=== PATIENT | female | born 1985 | race Two or more races ===

== ENCOUNTER → 2022-04-03 | Outpatient (CLI) | payer OTHER ==
[~2022-04-03] MED LIST: ACET-66 PO; FLUT16H NASAL; LORA10TA7 PO
== END | disposition home or self-care (01) ==
LOC: RAH 09:03
PROVIDERS: ATTEND Internal Medicine Gastroenterology
DX: R94.5 Abnormal results of liver function studies (principal)
CPT/HCPCS: 76700

== ENCOUNTER 2022-04-17 14:54 | Emergency (ER) | payer OTHER ==
[~2022-04-17] VITALS: Ht 165.1 cm; Wt 105.2 kg
[2022-04-17 17:09] LABS: APPEARANCE,URINE Clear (CLEAR); BILIRUBIN,URINE Negative (NEGATIVE); COLOR,URINE Yellow (YELLOW); GLUCOSE, URINE (UA) Negative (NEGATIVE); KETONES,URINE Negative (NEGATIVE); LEUKOCYTE ESTERASE ,URINE Negative (NEGATIVE); NITRATE,URINE Negative (NEGATIVE); OCCULT BLOOD,URINE Negative (NEGATIVE); PROTEIN,URINE Negative (NEGATIVE); UROBILINOGEN,URINE 0.2 mg/dL (0.2-1.0)
[2022-04-17 17:11] LABS: HCG,QUAL RESULT NEGATIVE (NEGATIVE)
[2022-04-17] MEDS ORDERED: ONDANSETRON 4MG INJ IVP ONE (17:30)
[2022-04-17] MEDS ORDERED: 0.9%NACL 1000ML 1,000 ML IV ONE (17:30)
[2022-04-17] MEDS ORDERED: KETOROLAC 15MG/ML VIAL (15MG/ML) IV ONE (17:30)
[2022-04-17 17:41] LABS: BASOPHILS % (AUTO) 0.6 % (0.0-5.0); EOSINOPHILS % (AUTO) 2.2 % (0.0-8.0); HEMATOCRIT 44.3 % (36-48); LYMPHOCYTES % (AUTO) 31.2 % (21.0-51.0); MEAN CORPUSCULAR HEMOGLOBIN 26.9 pg (27.0-33.0); MEAN CORPUSCULAR HGB CONC 34.5 g/dL (32.0-36.0); MEAN CORPUSCULAR VOLUME 77.9 fL (79-99); MONOCYTES % (AUTO) 9.1 % (3.0-13.0); NEUTROPHILS % (AUTO) 56.5 % (40.0-77.0); PLATELET COUNT (AUTO) 304 K/uL (130-400); RED BLOOD CELL COUNT(AUTO) 5.69 MIL/uL (4.00-5.50); RED CELL DISTRIBUTION WIDTH 14.6 % (11.0-15.5); WHITE BLOOD COUNT (AUTO) 13.9 K/uL (4.8-10.8)
[2022-04-17 17:56] LABS: CREATININE 0.8 mg/dL (0.5-1.5); POTASSIUM 3.6 mmol/L (3.5-5.1)
[2022-04-17 18:03] LABS: ALBUMIN 3.6 g/dL (3.5-5.0); BILIRUBIN,TOTAL 0.7 mg/dL (0.2-1.0); TOTAL PROTEIN, SERUM 8.1 g/dL (6.0-8.3)
[2022-04-17 19:40] VITALS: BP 113/80
[2022-04-17] MEDS ORDERED: MAGN296S76 PO (21:09)
[2022-04-17] MEDS ORDERED: POLY17PO4 PO (21:09)
== END 2022-04-17 21:23 | disposition home or self-care (01) ==
LOC: EDH 14:54
DX: K59.00 Constipation, unspecified (principal); Z79.1 Long term (current) use of non-steroidal anti-inflammatories (NSAID)
CPT/HCPCS: 36415; 74018; 76856; 80053; 81003; 81025; 85025; 96374; 96375; 99285; J1885; J2405; J7030

== ENCOUNTER 2023-06-11 16:12 | Emergency (ER) | payer OTHER ==
[~2023-06-11] VITALS: Ht 165.1 cm; Wt 117.9 kg
[~2023-06-11 16:12] MED LIST changes: +MAGN296S73 PO; +POLY17PO4 PO
[2023-06-11 16:31] VITALS: BP 128/76; PULSE 80; RESP 17
[2023-06-11] MEDS ORDERED: CIPOTIC AS (19:16)
[2023-06-11] MEDS ORDERED: CIPROFLOXACIN HCL 0.2%/HYDROCORT 1% 10 ML OTIC SUSP OTIC SCH (19:30)
== END 2023-06-11 20:02 | disposition home or self-care (01) ==
LOC: EDH 16:12
DX: H60.92 Unspecified otitis externa, left ear (principal)

== ENCOUNTER 2025-10-17 16:54 | Emergency (ER) | payer OTHER ==
[~2025-10-17] VITALS: Ht 165.1 cm; Wt 77.1 kg
[~2025-10-17 16:54] MED LIST changes: +CIPOTIC AS
--- NOTE | 2025-10-17 17:00 | ERN ---
ED Note History of Present Illness Stated Complaint: PALPITATIONS Chief Complaint: Palpitations Time Seen by MD: 16:55 Dictation: PATIENT IS A 40-YEAR-OLD FEMALE COMING IN WITH MULTIPLE COMPLAINTS TO INCLUDE PALPITATIONS AND FLU-LIKE SYMPTOMS AND WORRY ABOUT HAVING SARS COVID. SHE HAS HAD THIS FOR 2-3 DAYS. IN ADDITION SHE IS HAVING SOME PELVIC CRAMPING, STATES SHE IS APPROXIMATELY SEVEN WEEKS HOWEVER HAS A ONLY DONE HOME TEST, HAS HAD NO CARE. DENIES VAGINAL BLEEDING OR DISCHARGE. A2 Allergies: Coded Allergies: No Known Drug Allergies (Unverified Allergy, Unknown, 11/24/21) Home Meds Active Scripts Ciprofloxacin HCl/Hc (Cipro Hc Otic Susp) 20 Drop/Ml O[place], 1 DROP TID for 7 Days, #1 BOTTLE Prov:ANDREWS DE LUNA NP 06/11/23 Polyethylene Glycol 3350 (Miralax) 17 Gm Powd.pack, 17 GM PO DAILY, #1 CANISTER Prov:MELECIO MONTEIRO 04/17/22 Magnesium Citrate (Magnesium Citrate) 296 Ml Solution, 296 ML PO ONCE, #296 ML Prov:FITTINGMELECIOP 04/17/22 Loratadine (Loratadine) 10 Mg Tablet, 10 MG PO DAILY for 30 Days, #30 TAB Prov:OPAL KILPATRICK MD 11/24/21 Fluticasone Propionate (Flonase Nasal [place]) 50 Mcg/[place], 50 MCG NASAL BID for 14 Days, #28 SPRAY Prov:OPAL KILPATRICK MD 11/24/21 Acetaminophen (Tylenol) 500 Mg Tab, 500 MG PO Q6HPRN PRN for FEVER for 5 Days, #30 TAB Prov:OPAL KILPATRICK MD 11/24/21 Past Medical History Past Medical History: No Pertinent History Surgical History: Other LMP: Aug 21, 2025 : 7 Para: 4 Aborts: 2 RN Note Reviewed/Agreed w/PFSH: Yes Review of System Dictation CONSTITUTIONAL: NEGATIVE EXCEPT FOR HPI FLU-LIKE SYMPTOMS HEAD/FACE: NEGATIVE EXCEPT FOR HPI EENT: NEGATIVE EXCEPT FOR HPI RESPIRATORY: NEGATIVE EXCEPT FOR HPI PALPITATIONS GASTROINTESTINAL/ABDOMINAL: NEGATIVE EXCEPT FOR HPI GENITOURINARY: NEGATIVE EXCEPT FOR HPI PELVIC TENDERNESS MUSCULOSKELETAL: NEGATIVE EXCEPT FOR HPI INTEGUMENTARY: NEGATIVE EXCEPT FOR HPI NEUROLOGICAL/PSYCH: NEGATIVE EXCEPT FOR HPI HEMATOLOGIC/LYMPHATIC: NEGATIVE EXCEPT FOR HPI ALL SYSTEMS NEGATIVE, EXCEPT NOTED ABOVE. 13 POINT REVIEW OF SYSTEMS ASSESSED AND ALL NEGATIVE EXCEPT FOR ABOVE. Initial Vital Sign VS Vital Signs Date Time Temp Pulse Resp B/P (MAP) Pulse Ox O2 Delivery O2 Flow Rate FiO2 10/17/25 16:55 97.7 82 20 135/72 99 Room Air 0 10/17/25 17:30 21 Physical Exam Dictation VITAL SIGNS REVIEWED GENERAL APPEARANCE: ALERT, ORIENTED X 3, NO ACUTE DISTRESS, WELL DEVELOPED, NOURISHED. HEAD AND FACE: NON-TRAUMATIC. EYES: PERRL, PINK CONJUNCTIVAS, EYELID NO TRAUMA, ANTERIOR CHAMBER WITH ARCUS SENILIS. EARS: PINNAS INTACT AND NO SIGNS OF TRAUMA OR ERYTHEMA EAR CANALS CLEAR AND NO D ISCHARGE TM NO ERYTHEMA NOSE: NO DISCHARGE, NO BLEEDING. OROPHARYNX: MOUTH NORMAL, TONGUE PINK, PHARYNX CLEAR,NO ERYTHEMA, TONSILS NO EXUDATES, NO ABSCESSES NOTED, MUCOUS MEMBRANE MOIST NECK: SUPPLE, NON-TENDER, NO THYROMEGALY, NO MASSES, NO JVD, NO BRUITS BREAST:DEFERRED CHEST:NO TENDERNESS, NO CREPITUS, NO PARADOXICAL MOVEMENT, NO RETRACTIONS LUNGS:CLEAR, WELL-VENTILATED, SYMMETRIC, NO RALES, NO WHEEZING, NO RHONCHI, NO STRIDOR, GOOD BREATH SOUNDS BILATERALLY HEART: REGULAR RATE, REGULAR RHYTHM, NO MURMUR, NO GALLOPS VASCULAR: NO PERIPHERAL EDEMA, ABDOMEN: SOFT, POSITIVE BOWEL SOUNDS, NONDISTENDED, NO GUARDING, NONTENDER, NO REBOUND, NO MASSES NO HEPATOMEGALY, NO SPLENOMEGALY, NO BOWMAN'S SIGN, NO HERNIAS. RECTAL: DEFERRED GENITAL: DEFERRED NEUROLOGICAL: NORMAL SPEECH, MOTOR FUNCTION INTACT, SENSORY FUNCTION INTACT MUSCULOSKELETAL: NECK NONTENDER, FULL RANGE OF MOTION, BACK NONTENDER, FULL RANGE OF MOTION, EXTREMITIES: NONTENDER, FULL RANGE OF MOTION SKIN: COLOR PINK, DRY, NO TURGOR, NO RASH, NO LACERATIONS, NO ABRASIONS, NO CONTUSIONS. LYMPHATIC: DEFERRED Results (Laboratory/Radiology) Laboratory/Radiology Laboratory Tests Test 10/17/25 17:19 10/17/25 17:37 Influenza Type A Antigen Negative For Type A Influenza Type B Antigen Negative For Type B SARS-CoV-2 Antigen (Rapid) PRESUMPTIVE NEGATIVE Group A Streptococcus Rapid negative (NEGATIVE) White Blood Count 7.4 K/uL (4.8-10.8) Red Blood Count 4.24 MIL/uL (4.00-5.50) Hemoglobin 10.7 g/dL (12.0-16.0) L Hematocrit 32.1 % (36-48) L Mean Corpuscular Volume 75.7 fL (79-99) L Mean Corpuscular Hemoglobin 25.2 pg (27.0-33.0) L Mean Corpuscular Hemoglobin Concent 33.3 g/dL (32.0-36.0) Red Cell Distribution Width 14.5 % (11.0-15.5) Platelet Count 265 K/uL (130-400) Mean Platelet Volume 10.3 fL (7.5-10.5) Immature Granulocyte % (Auto) 0.1 % (0-1) Neutrophils (%) (Auto) 41.7 % (40.0-77.0) Lymphocytes (%) (Auto) 38.4 % (21.0-51.0) Monocytes (%) (Auto) 14.6 % (3.0-13.0) H Eosinophils (%) (Auto) 4.1 % (0.0-8.0) Basophils (%) (Auto) 1.1 % (0.0-5.0) Neutrophils # (Auto) 3.1 K/uL (1.8-7.7) Lymphocytes # (Auto) 2.8 K/uL (1.0-4.8) Monocytes # (Auto) 1.1 K/uL (0.1-1.0) H Eosinophils # (Auto) 0.30 K/uL (0.00-0.70) Basophils # (Auto) 0.08 K/uL (0.00-0.20) Absolute Immature Granulocyte (auto 0.01 K/uL (0-1) Nucleated Red Blood Cells 0.0 % (0.0-0.19) Sodium Level 138 mmol/L (136-145) Potassium Level 3.6 mmol/L (3.5-5.1) Chloride Level 104 mmol/L (101-111) Carbon Dioxide Level 26 mmol/L (21-32) Blood Urea Nitrogen 10 mg/dL (7-18) Creatinine 0.7 mg/dL (0.5-1.0) Glomerular Filtration Rate Calc 111 mL/min (>90) Random Glucose 87 mg/dL (70-105) Total Calcium 8.0 mg/dL (8.5-10.1) L Human Chorionic Gonadotropin, Quant 1615 mIU/mL (0-5) H Labs Reviewed?: Yes ED Course ED Course Orders Procedure Category Date Status Time Covid19 (Sars Antigen LAB 10/17/25 Complete Rapid) 16:57 Cbc With Differential LAB 10/17/25 Complete 16:57 Hcg,Quantitative LAB 10/17/25 Complete 16:57 Us Ob <14 Weeks US 10/17/25 Resulted 16:57 Type And Screen BBK 10/17/25 Complete 16:57 Basic Metabolic Panel LAB 10/17/25 Complete 16:57 Rapid (Group A Strep) LAB 10/17/25 Complete 17:01 Influenza Type A & B, LAB 10/17/25 Complete Rapid 17:01 Vital Signs Date Time Temp Pulse Resp B/P (MAP) Pulse Ox O2 Delivery O2 Flow Rate FiO2 10/17/25 19:15 97.7 82 15 135/72 99 Room Air* 0 21 10/17/25 17:30 97.7 82 20 135/72 99 Room Air* 0 21 10/17/25 16:55 97.7 82 20 135/72 99 Room Air 0 1930/PATIENT IS AWARE OF HER CLINICAL FINDINGS TO INCLUDE BLIGHTED OVUM WITH A QUANT OF 1600. SHE SAID SHE WAS TOLD BY [facility] BACK IN [place] THAT SHE WAS HOWEVER [place] AND NEVER FOLLOWED UP WITH THE ANYBODY UNTIL SHE GOT BACK TO THE [place] AND CAME TO SEE US TODAY. Medical Decision Making MDM MDM: DIFFERENTIAL DIAGNOSIS: THREATENED AB/COMPLETE A B//ELECTROLYTE IMBALANCE/DEHYDRATION/SARS COVID RATIONALE: TESTS CONSIDERED AND ORDERED SECONDARY TO SHARED DECISION MAKING INCLUDE: LABS/SWABS/ULTRASOUND PREVIOUS OUTSIDE RECORDS REVIEWED: OLD ER VISITS. RISK OF COMPLICATION AND/OR MORBIDITY OR MORTALITY OF PATIENT MANAGEMENT: NONE MEDICATIONS-PER MEDICATION RECONCILIATION NEED FOR HOSPITALIZATION: PATIENT DOES NOT MEET CRITERIA FOR HOSPITALIZATION. NONE NEED FOR EMERGENCY MAJOR/MINOR SURGERY: NO THERE ARE NO SOCIAL CONCERNS WITH THIS PATIENT. PRESCRIPTION DRUG MANAGEMENT NONE PRESCRIPTIONS WILL INCLUDE SYMPTOMATIC CARE PATIENT'S PRIOR EXTERNAL MEDICAL RECORDS FROM OTHER ER VISITS WERE REVIEWED BY ME INDICATED. PRIOR TESTING AND RESULTS FROM PREVIOUS VISITS WERE REVIEWED. PRIOR TESTS WERE TAKEN INTO ACCOUNT WITH MEDICAL DECISION MAKING AND RESOURCE UTILIZATION, INDEPENDENT HISTORIAN/HISTORIANS WERE USED TO OBTAIN COMPLETE MEDICAL HISTORY. I INDEPENDENTLY INTERPRETED THE TEST THAT WERE PERFORMED, RESULTS WERE REVIEWED BY ME AND CONSIDERED FINDINGS ON RADIOLOGY IF ORDERED. MEDICAL MANAGEMENT AND EXAMINATION INTERPRETATION DISCUSSIONS WERE HAD BY ME WITH OTHER QUALIFIED HEALTHCARE PROFESSIONALS INDICATED FOR THE PATIENT'S CARE. DX & DISP Disposition: Discharge Departure Impression: Primary Impression: Blighted ovum Additional Impressions: Chronic anemia, Hypocalcemia Condition: Stable Scripts Calcium Carbonate (Calcium) 500 Mg Calcium (1250 Mg) Tab.chew 1 TAB PO BID for 30 Days, #60 TAB 0 Refills Prov: KALEN WALKER 10/17/25 Additional Instructions: Follow-up with primary care provider in 1 to 2 days. Take medications as dire cted here in the emergency room. Okay to continue home medications unless otherwise discussed during your visit in the emergency room today. Return to your nearest emergency room if symptoms worsen or if there is no improvement. Call 911 if you need immediate assistance. Take Tylenol or Motrin [id number] as needed and if no contraindications are present. Increase oral hydration. A wound culture or urine culture was ordered here in the emergency room department please follow-up with primary care provider and advise them to get repeat ports from our facility. If you had any Hunter wrap/splints that were applied here, please do not remove them until you see your primary care or specialty. Continue vitamins/[id number]. Take calcium as directed Follow up with on Sunday for management Referrals: ERIN KEITH MD (PCP) Time of Disposition: 19:32 I have reviewed the case, and I agree with, Diagnosis and Plan KALEN WALKER Oct 17, 2025 17:00
--- NOTE | 2025-10-17 17:30 | NUR ---
PATIENT IN ROOM
[2025-10-17 17:37] LABS: RAPID GROUP A STREP negative (NEGATIVE)
[2025-10-17 17:48] LABS: INFLUENZA TYPE A Negative For Type A (NEGATIVE); INFLUENZA TYPE B Negative For Type B (NEGATIVE)
[2025-10-17 17:55] LABS: IMMATURE GRANULOCYTE ABSOLUTE 0.01 K/uL (0-1); NUCLEATED RED BLOOD CELLS 0.0 % (0.0-0.19); PLATELET COUNT (AUTO) 265 K/uL (130-400); RED BLOOD CELL COUNT(AUTO) 4.24 MIL/uL (4.00-5.50); RED CELL DISTRIBUTION WIDTH 14.5 % (11.0-15.5); WHITE BLOOD COUNT (AUTO) 7.4 K/uL (4.8-10.8)
[2025-10-17 18:04] LABS: CREATININE 0.7 mg/dL (0.5-1.0); GLOMERULAR FILTR. RATE CALC 111.0 mL/min (>90); GLUCOSE,RANDOM 87.0 mg/dL (70-105); SODIUM SERUM 138.0 mmol/L (136-145); UREA NITROGEN, BLOOD 10.0 mg/dL (7-18)
[2025-10-17 18:30] LABS: HCG,QUANTITATIVE 1615.0 mIU/mL (0-5)
--- NOTE | 2025-10-17 19:04 | HMCIMG ---
EXAM: US Obstetrical, Complete <14 weeks, CLINICAL HISTORY: PELVIC PAIN, SEVEN WEEKS , NO CARE TECHNIQUE: Transabdominal and transvaginal imaging of the maternal pelvis and a < 14-week gestation with image documentation. COMPARISON: None provided. FINDINGS: GESTATION: Fluid in the endometrial canal which may resent an early gestational sac. However, no yolk sac or pole is identified. UTERUS: Measures 9.3 x 5.6 x 8 cms. No myometrial mass. CERVIX: Closed. Unremarkable. OVARIES: The right ovary is unremarkable. The left ovary is obscured by the bowel gas. FREE FLUID: No free fluid. IMPRESSION: Questionable early intrauterine gestational sac, but no yolk pole identified. Therefore, there is no definite intrauterine gestation at this time. In a patient with a positive test, these findings may be due to an early intrauterine gestation, a spontaneous or a nonvisualized ectopic . Follow-up sonography and beta hCG levels are recommended. /Kim
[2025-10-17] MEDS ORDERED: CALC-322 PO (19:32)
[2025-10-17 19:37] VITALS: BP 110/75; PULSE 69; RESP 14; TEMP 97.9; O2SAT 99
== END 2025-10-17 19:53 | disposition home or self-care (01) ==
LOC: EDH 16:54
DX: O02.0 Blighted ovum and nonhydatidiform mole (principal); O99.011 Anemia complicating pregnancy, first trimester; D64.9 Anemia, unspecified; O99.281 Endocrine, nutritional and metabolic diseases complicating pregnancy, first trimester; E83.51 Hypocalcemia; Z20.822 Contact with and (suspected) exposure to COVID-19; Z3A.01 Less than 8 weeks gestation of pregnancy
CPT/HCPCS: 36415; 76801; 80048; 84702; 85025; 86850; 86900; 86901; 87426; 87804; 87880; 99284